=== PATIENT | female | born 1935 | race Caucasian/White ===

== ENCOUNTER 2020-08-19 09:51 | Outpatient (CLI) | payer MEDICARE, BC ==
[2020-08-19] VITALS (21 sets, daily range): BP systolic 117–157; BP diastolic 55–91; PULSE 63–73
[~2020-08-19] VITALS: Ht 154.9 cm; Wt 75.0 kg
[~2020-08-19 09:51] MED LIST: ALLEGRA 180MG180 MG PO; CALCIUM 600MG+D1 TAB PO; INDERAL80 MG PO; K-DUR20 MEQ PO; NORVASC 5MG5 MG/TAB PO; OMEGA-3 1000 MG1 CAP PO; ONE-A-DAY ESSE1 EACH PO; OSTEO-BI-FLEX 21 TAB PO; PRILOSEC 20MG20 MG PO; lutein
[2020-08-19] MEDS ORDERED: NATURAL IRON65 MG PO (10:07)
[2020-08-19] MEDS ORDERED: INDERAL80 MG PO (10:10)
--- NOTE | 2020-08-19 10:19 | NUR ---
COVID VACC X2
--- NOTE | 2020-08-19 10:31 | NUR ---
PT BROUGHT INTO CT AND PLACED ON TO TABLE. MONITORING EQUIPMENT PLACED.
--- NOTE | 2020-08-19 14:35 | NUR ---
Discharge instructions given to pt.Pt verbalizes understanding.INT removed,catheter tip intact.Pt escorted out via wheelchair by this nurse.
== END 2020-08-19 14:40 | disposition home or self-care (01) ==
LOC: COL.RAD 09:51
DX: J30.2 Other seasonal allergic rhinitis (principal); R91.8 Other nonspecific abnormal finding of lung field
CPT/HCPCS: 32107